=== PATIENT | male | born 1980 | race Caucasian/White ===

== ENCOUNTER 2018-08-25 19:17 | Emergency (ER) | payer OTHER ==
--- NOTE | 2018-08-25 19:21 | ED Physician Documentation ---
General Adult - HISTORIAN Historian: patient - HPI Stated Complaint: dog bite right hand Chief Complaint: Animal Bite Onset: minutes (45) Timing: still present Severity: mild Further Comments: yes (He was playing with his own dog and the dog bit at his hand thinking he was getting the toy. He has no loss of feeling. No other complaints) Last known Well Code/Unknown Code: Known - ROS CONST: no problems, chills MS/SKIN/LYMPH: other (laceration ) - PAST HX Past History: none Other History: none Surgeries/Procedures: other (hand ) Allergies/Adverse Reactions: Allergies Allergy/AdvReac Type Severity Reaction Status Date / Time No Known Allergies Allergy Verified 03/09/13 10:06 Home Medications: Ambulatory Orders Medication Instructions Recorded NK 03/09/13 - SOCIAL HX Smoking History: cigarettes Alcohol Use: none Drug Use: none - FAMILY HX Family History: No - VITAL SIGNS Vital Signs: Vital Signs Temp Pulse Resp BP Pulse Ox 114/71 03/09/13 10:39 - REVIEWED ASSESSMENTS Nursing Assessment Reviewed: Yes Vitals Reviewed: Yes Procedures Wound Location: upper extremity Wound's Depth, Shape: superficial Wound Explored: clean Anesthesia: 1% Lidocaine Wound Repaired With: sutures Suture Size/Type: 4:0 Number of Sutures: 5 Sterile Dressing Applied?: Yes Splint Applied?: No General Adult Physical Exam - PHYSICAL EXAM GENERAL APPEARANCE: no distress EENT: eye inspection normal, ENT inspection normal, no signs of dehydration NECK: normal inspection RESPIRATORY: no resp distress, chest non-tender, breath sounds normal CVS: reg rate & rhythm, heart sounds normal, equal pulses ABDOMEN: soft, normal bowel sounds, no distension BACK: normal inspection SKIN: warm/dry, other (4 cm laceartion on right hand ) EXTREMITIES: non-tender NEURO: oriented X3 Discharge Clincal Impression: Laceration of right hand Qualifiers: Encounter type: initial encounter Foreign body presence: without foreign body Qualified Code(s): S61.411A - Laceration without foreign body of right hand, initial encounter Referrals: Primary Doctor,No [Primary Care Provider] - 2 Days Comments: 1. Keep area clean and dry 2. Sutures removed 7-10 days 3. Monitor for signs and symptoms of infection - discussed - redness, swelling, drainage, pain 4. Bactrim DS take 1 by mouth twice daily x 10 days 5. See PCP in 2-4 days is any issues 6. Return to ER for any concerns Condition: Stable Disposition: 01 HOME, SELF-CARE Decision to Admit: NO Date of Decison to Admit: 08/25/18 Decision Time: 20:17
[2018-08-25] MEDS ORDERED: NEOMYCIN/BACITRACIN/POLYMYXINB OINT 15 GM TP ONE (19:30)
[2018-08-25] MEDS ORDERED: DIPH,PERTUSS(ACELL),TET VAC/PF 0.5 ML DISP.SYRIN IM ONE (20:21)
[2018-08-25] MEDS ORDERED: SULFAMETHOXAZOLE/TRIMETHOPRIM 800/160MG TAB PO ONE (20:28)
[2018-08-25 23:49] VITALS: BP 107/56
== END 2018-08-25 20:32 | disposition home or self-care (01) ==
LOC: ED 19:17
DX: S61.411A Laceration without foreign body of right hand, initial encounter (principal); W54.0XXA Bitten by dog, initial encounter; Y93.K9 Activity, other involving animal care; Y92.9 Unspecified place or not applicable
CPT/HCPCS: 12002; 90471; 90715; 99282; 99283; A9270